=== PATIENT | male | born 1980 | race Caucasian/White ===

== ENCOUNTER 2017-06-01 11:52 | Emergency (ER) | payer OTHER ==
[~2017-06-01] VITALS: Ht 182.9 cm; Wt 90.7 kg
--- NOTE | 2017-06-01 11:52 | NUR ---
Arrived via [facility] for unwitnessed loss of consciousness. He has a history of seizures, reports that he has not been sleeping well and has been drinking. Patient is using ativan as monotherapy to conrol his seizures, reports that he does not have a PCP. Patient to ER bed [facility] for [facility]. Side rails up. Report given to Tod RODRIGUEZ. side rails up Addendum: 06/01/17 at 1647 by [email or web address] Amendment undone in EDM - 06/01/17 at 1648 by [email or web address] Pharmacy called to prepare Dilantin.
--- NOTE | 2017-06-01 11:54 | NUR ---
Pt BIB ACLS c/o 3cm lac to chin s/p unwitnessed ALOC today. Pt [place] speaking only. Active bleeding to chin. Pt states 5/10 throbbing pain to site. Pt denies N/V/D. No other injuries/complaints per pt/noted. Will continue to monitor.
[2017-06-01 11:55] VITALS: BP_SYST 131
--- NOTE | 2017-06-01 11:55 | NUR ---
ER Dr. Scott at bedside examining patient.
[2017-06-01] MEDS ORDERED: DIPH-TET-PERTUS Vaccine 0.5 ML VIAL (ADACEL) I.M. ONE (12:15)
--- NOTE | 2017-06-01 12:20 | NUR ---
Medication administered. Pt tolerated well. No adverse reactions noted
[2017-06-01] MEDS ORDERED: LIDOCAINE 1%, 20 ML MDV 20 ML ONE (12:26)
[2017-06-01 12:28] LABS: BILIRUBIN,URINE NEGATIVE (NEGATIVE); BLOOD, URINE 1+ (NEGATIVE); CLARITY/URINE CLEAR (CLEAR); COLOR,URINE YELLOW (YELLOW); GLUCOSE,URINE NEGATIVE (NEGATIVE); KETONES,URINE NEGATIVE (NEGATIVE); LEUKOCYTE ESTERASE ,URINE NEGATIVE (NEGATIVE); NITRITE, URINE NEGATIVE (NEGATIVE); PH,URINE 5.5 (5.0-8.0); PROTEIN URINE 1+ (NEGATIVE); UROBILINOGEN,URINE 0.2 (0.2-1.0)
[2017-06-01 12:39] LABS: BASOPHILS # (AUTO) 0.1 K/uL (0.0-0.2); EOSINOPHILS # (AUTO) 0.1 K/uL (0.0-0.4); EOSINOPHILS % (AUTO) 1.9 % (0.0-4.0); HEMATOCRIT 43.3 % (36-54); HEMOGLOBIN 14.3 g/dL (14.0-18.0); LYMPHOCYTES # (AUTO) 2.6 K/uL (1.0-5.5); LYMPHOCYTES % (AUTO) 37.4 % (20.5-51.5); MEAN CORPUSCULAR HEMOGLOBIN 30 pg (27-31); MEAN CORPUSCULAR HGB CONC 33 % (32-36); MEAN CORPUSCULAR VOLUME 90 fL (79.0-98.0); MONOCYTES # (AUTO) 0.4 K/uL (0.0-1.0); MONOCYTES % (AUTO) 5.6 % (1.7-9.3); NEUTROPHILS # (AUTO) 3.9 K/uL (1.8-7.7); NEUTROPHILS % (AUTO) 54.1 % (40.0-70.0); PLATELET COUNT (AUTO) 184 K/uL (130-430); RED CELL DISTRIBUTION WIDTH 12.7 % (9.0-15.0); WHITE BLOOD COUNT (AUTO) 7.1 K/uL (4.8-10.8)
[2017-06-01 12:42] LABS: BARBITURATE, URINE NEGATIVE (NEG <=200); BENZODIAZEPINE, URINE NEGATIVE (NEG <=150); CANNABINOID, URINE POSITIVE (NEG <=50); COCAINE, URINE NEGATIVE (NEG <=150); METHAMPHETAMINES SCREEN,URINE NEGATIVE (NEG <=500); OPIATE, URINE NEGATIVE (NEG <=100); PHENCYCLIDINE SCREEN,URINE NEGATIVE (NEG <=25); UR TRICYCLIC ANTIDEPRESSANTS NEGATIVE (NEG <=300); URINE AMPHETAMINE NEGATIVE (NEG <=500); URINE METHADONE NEGATIVE (NEG <=200); URINE OXYCODONE SCREEN NEGATIVE (NEG <=100); URINE PROPOXYPHENE SCREEN NEGATIVE (NEG <=300)
--- NOTE | 2017-06-01 12:45 | NUR ---
Trimmed pt.'s beared to view extent of laceration, lac measures approx. 3 cm in length. Irrigated with NS. Dr. Scott at bedside, lac well approximated with 6 sutures. Pt tolerated procedure well.
[2017-06-01 12:55] LABS: ANION GAP 4 (5-15); CALCIUM 8.8 mg/dL (8.4-11.0); CHLORIDE 106 mmol/L (98-107); CREATININE 0.89 mg/dL (0.55-1.30); GLUCOSE 104 mg/dL (70-99); POTASSIUM 3.7 mmol/L (3.5-5.1); SODIUM SERUM 137 mmol/L (136-145); UREA NITROGEN, BLOOD 16 mg/dL (8-21)
[2017-06-01 13:00] LABS: ALANINE AMINOTRANSFERASE 49 U/L (12-78); ALBUMIN 4.2 g/dL (3.4-4.8); ASPARTATE AMINOTRANSFERASE 51 U/L (10-37); TOTAL BILIRUBIN 0.2 mg/dL (0.0-1.0)
[2017-06-01 13:01] LABS: GFR AFRICAN AMERICAN 126 mL/min (>90)
[2017-06-01 13:02] LABS: ALCOHOL, BLOOD < 3 mg/dL (<10)
[2017-06-01 13:38] LABS: BACTERIA,URINE FEW /HPF (None Seen); WBC,URINE 0-3 /HPF (0-3)
--- NOTE | 2017-06-01 14:00 | NUR ---
Pt laying comfortably in bed with no signs of distress. Will continue to monitor.
--- NOTE | 2017-06-01 15:58 | NUR ---
DMV Report filed and faxed to [phone].
[2017-06-01] MEDS ORDERED: NACL 0.9% 1,000 ML IV ONE (16:14)
[2017-06-01] MEDS ORDERED: PHENYTOIN SODIUM INJ 1,000 MG in NS 100 ML IV ONE (16:45)
--- NOTE | 2017-06-01 16:45 | NUR ---
Pharmacy called to prepare Dilantin medication
[2017-06-01 16:49] LABS: PROTHROMBIN TIME 10.2 SECS (9.5-12.5)
--- NOTE | 2017-06-01 17:10 | NUR ---
Medication administered. Pt tolerated well. No adverse reactions noted.
--- NOTE | 2017-06-01 18:15 | NUR ---
Patient given written and verbal discharge instructions and verbalizes understanding. ER MD Scott discussed with patient the results and treatment provided. Patient in stable condition. ID arm band removed. IV catheter removed intact and dressing applied, no active bleeding. Rx of Tylenol, Dilantin given. Patient educated on pain management and to follow up with PMD. Pain Scale 0. Opportunity for questions provided and answered. Medication side effect fact sheet provided.
[2017-06-01 18:19] VITALS: BP_SYST 136
== END 2017-06-01 18:19 | disposition home or self-care (01) ==
LOC: SED 11:52
DX: S01.81XA Laceration without foreign body of other part of head, initial encounter (principal); G40.909 Epilepsy, unspecified, not intractable, without status epilepticus; F12.10 Cannabis abuse, uncomplicated; W19.XXXA Unspecified fall, initial encounter; Y93.89 Activity, other specified; Y92.89 Other specified places as the place of occurrence of the external cause; Y99.8 Other external cause status
CPT/HCPCS: 12013; 36415; 70450; 80053; 80185; 80307; 81000; 85025; 85610; 85730; 90471; 90715; 93005; 96361; 96365; 99285; G0482; J1165; J2001; J7030